=== PATIENT | female | born 2000 | race Caucasian/White ===

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

== ENCOUNTER 2019-01-17 16:24 | Emergency (ER) | payer OTHER ==
[~2019-01-17] VITALS: Ht 157.5 cm; Wt 75.0 kg
[~2019-01-17 16:24] MED LIST: FLAG500T PO
[2019-01-17 18:04] VITALS: BP 130/79
--- NOTE | 2019-01-17 19:22 | ECGEPIP ---
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
== END 2019-01-17 18:05 | disposition home or self-care (01) ==
LOC: M ED 16:24
DX: O99.419 Diseases of the circulatory system complicating pregnancy, unspecified trimester (principal); Z86.79 Personal history of other diseases of the circulatory system